=== PATIENT | female | born 1950 | race Caucasian/White ===

== ENCOUNTER 2016-11-01 10:25 | Outpatient (CLI) | payer OTHER ==
[2016-11-01 10:55] LABS: BASOPHILS % 0.7 (0.0-1.5); EOSINOPHILS % 3.5 % (0.0-6.8); LYMPHOCYTES # 1.8 # k/uL (0.6-4.0); MEAN CORPUSCULAR HEMOGLOBIN 30.9 pg (28.0-34.0); MONOCYTES # 0.3 # k/uL (0.0-0.9); MONOCYTES % 3.8 % (0.0-11.0); NEUTROPHILS # 5.4 # k/uL (1.4-7.7)
[2016-11-01 11:07] LABS: eGFR (African) > 60; eGFR (Non-African) > 60
== END 2016-11-01 10:26 ==
LOC: LAB 10:25
PROVIDERS: ATTEND Family Medicine
DX: E03.9 Hypothyroidism, unspecified (principal); R53.83 Other fatigue; R73.9 Hyperglycemia, unspecified
CPT/HCPCS: 36415; 80053; 82306; 83036; 84436; 84443; 84480; 85025

== ENCOUNTER 2017-01-04 13:27 | Outpatient (CLI) | payer OTHER | END 2017-01-04 13:30 | LOC: PULMONARY 13:27 | PROVIDERS: ATTEND Internal Medicine Critical Care Medicine | DX: G47.33 Obstructive sleep apnea (adult) (pediatric) (principal); R09.02 Hypoxemia | CPT/HCPCS: 99214; G0463 ==

== ENCOUNTER 2017-04-18 11:17 | Outpatient (CLI) | payer OTHER ==
--- NOTE | 2017-04-18 14:43 | Diagnostic Imaging Report ---
SANDHYA REAL [facility] [address] [facility].[address] [address] Report Submission Date: Apr 18, 2017 12:04:50 PM CDT Patient Study Name: DEBRA ORLANDO Date: Apr 18, 2017 11:21:33 AM CDT Modality Type: CR Gender: F Description: UPPER EXTREMITY : 46 Institution: [facility] Physician: SANDHYA REAL Examination: Plain film humerus History: Discomfort Comparison exams: None provided Findings: 3 views of the humerus demonstrate normal cortical margins. No fracture. No dislocation. No joint effusion Impression: No acute osseous abnormality. Electronically signed on Apr 18, 2017 12:04:50 PM CDT by: Joe TRIPATHI
== END 2017-04-18 11:25 ==
LOC: RAD 11:17
PROVIDERS: ATTEND Family Medicine
DX: M79.602 Pain in left arm (principal)
CPT/HCPCS: 73060

== ENCOUNTER → 2017-04-19 | Outpatient (CLI) | payer OTHER ==
[2017-04-19 09:03] LABS: eGFR (African) > 60; eGFR (Non-African) > 60
== END ==
LOC: LAB 08:22
PROVIDERS: ATTEND Family Medicine
DX: E11.9 Type 2 diabetes mellitus without complications (principal)
CPT/HCPCS: 36415; 80053; 80061; 83036

== ENCOUNTER 2017-09-17 09:06 | Day surgery (SDC) | payer OTHER ==
[~2017-09-17 09:06] MED LIST: LACTATED RINGERS 1,000 ML IV.SOLN IV ONE; LIDOCAINE HCL/PF 2% 100 MG/5 ML VIAL IJ ONE; PROPOFOL 500 MG/50 ML VIAL IV ONE; SALINE FLUSH 10 ML DISP.SYRIN IVF ONE
--- NOTE | 2017-09-19 13:33 | GI Report ---
REFERRING PHYSICIAN: Dr. Agatha Concepcion GRAPPLER: Mushtaq Harris MD PROCEDURE MEDICATION: Propofol as per anesthesia. INDICATIONS: This is a screening colonoscopy. [place]. PROCEDURE PERFORMED: Colonoscopy. PROCEDURE: An Olympus video colonoscope was advanced to the rectum. There was a little friability in the rectum. She does have a hemorrhoid. A slightly atonic redundant colon and took some maneuvering to reach the base of the cecum. The appendiceal orifice and ileocecal valvae were normal. On slow withdrawal, the cecum, ascending colon, and transverse colon with no obvious intraluminal lesions noted. The descending colon and sigmoid with a lot redundancy but no obvious intraluminal lesions noted. There was a little friability just kind of around the rectum near the anal canal. Patient tolerated the procedure well. FINDINGS: 1. An atonic redundant colon. 2. Hemorrhoids. RECOMMENDATIONS: 1. A high-fiber diet, including Metamucil or Citrucel. 3. Consider re-looking at her colon in 10 years or sooner if clinically indicated. cc: Dr. Agatha TRIPATHI
== END 2017-09-17 12:00 ==
LOC: OPSURG 09:06
PROVIDERS: ATTEND Internal Medicine Gastroenterology
DX: Z12.11 Encounter for screening for malignant neoplasm of colon (principal); K64.9 Unspecified hemorrhoids
CPT/HCPCS: G0121; J2001; J2704; J7120; S1016

== ENCOUNTER 2018-03-15 11:05 | Outpatient (CLI) | payer OTHER | END 2018-03-15 11:10 | LOC: LAB 11:05 | PROVIDERS: ATTEND Family Medicine | DX: E03.9 Hypothyroidism, unspecified (principal); E11.9 Type 2 diabetes mellitus without complications | CPT/HCPCS: 36415; 83036; 84439; 84443; 84481; 84482 ==

== ENCOUNTER 2018-10-01 10:35 | Outpatient (CLI) | payer OTHER ==
--- NOTE | 2018-10-01 15:02 | Diagnostic Imaging Report ---
SANDHYA REAL [facility] [address] [facility].[address] 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 : 46 Institution: [facility] Physician: SANDHYA REAL Right lower extremity venous Doppler History: Right leg pain Duplex and color flow imaging was performed through the right lower extremity femoral popliteal venous system revealing normal compression and normal augmentation throughout. No filling defects are identified. Impression: No evidence for deep venous thrombosis of the right lower extremity. Electronically signed on Oct 01, 2018 11:48:21 AM FEED MILL OPERATOR by: Leslie TRIPATHI
== END 2018-10-01 11:00 ==
LOC: RAD 10:35
PROVIDERS: ATTEND Family Medicine
DX: E03.9 Hypothyroidism, unspecified (principal); M79.604 Pain in right leg
CPT/HCPCS: 36415; 84439; 84443; 84481; 93971

== ENCOUNTER 2019-03-07 08:48 | Outpatient (CLI) | payer OTHER ==
[2019-03-07 12:45] LABS: eGFR (Non-African) > 60
[2019-03-07 12:46] LABS: A1C 5.7 % (<5.7); HDL 28 mg/dL (>40)
--- NOTE | 2019-03-10 18:32 | Diagnostic Imaging Report ---
SANDHYA REAL [facility] [address] [address] Report Submission Date: Mar 10, 2019 5:53:53 PM CDT Patient Study Name: DEBRA ORLANDO Date: Mar 10, 2019 12:00:00 AM CDT Modality Type: DEXA\OT Gender: F Description: DEXA : 46 Institution: [facility] Physician: SANDHYA REAL HISTORY: 68-year-old female with osteoporosis screening. COMPARISON: None available. TECHNIQUE: Dual energy x-ray of absorption examination of the bilateral hips and lumbar spine in AP projection was performed. Bilateral Hips: The mean bone mineral density of the hips is 0.968 g/cm2 calcium hydroxyapatite, correlating with a T-score of -0.3. Lumbar Spine (L1-L4): The mean bone mineral density of the lumbar spine is 1.167 g/cm2 hydroxyapatite, correlating with a T-score of -0.1. IMPRESSION: 1. The patient's bilateral hip T-score is consistent with normal bone mineral density. 2. The patient's lumbar spine T-score is consistent with normal bone mineral density. Electronically signed on Mar 10, 2019 5:53:53 PM CDT by: Tomas TRIPATHI
== END 2019-03-07 08:50 ==
LOC: RAD 08:48
PROVIDERS: ATTEND Family Medicine
DX: R73.9 Hyperglycemia, unspecified (principal); I10 Essential (primary) hypertension; Z78.0 Asymptomatic menopausal state
CPT/HCPCS: 36415; 77080; 80053; 80061; 83036

== ENCOUNTER 2019-04-11 12:04 | Emergency (ER) | payer OTHER ==
--- NOTE | 2019-04-11 12:22 | ED Physician Documentation ---
General Adult - HISTORIAN Historian: patient - HPI Stated Complaint: R rib pain; wasp sting Chief Complaint: General Adult Onset: days ago Timing: still present Severity: moderate Further Comments: yes (Pt is a 68 yo female with 2 complaints. Pt fell 6 days ago and injured her R side and has had R rib pain. It hurts to take a deep breath and pt has had trouble sleeping. Pt's second complaint is that she was stung by a wasp 2 days ago and has had swelling at the sting site at her L wrist. The area is red and swollen. Pt has been applying OTC topical steroids. No difficulty breathing or swallowing after the sting.) - ROS CONST: no problems EYES/ENT: none CVS/RESP: other (chest wall / rib pain R side) GI/: none MS/SKIN/LYMPH: other (wasp sting R wrist) - PAST HX Past History: other (Depression, HTN, Thyroid d/o) Surgeries/Procedures: , other (ortho surgery, tonsillectomy) Allergies/Adverse Reactions: Allergies Allergy/AdvReac Type Severity Reaction Status Date / Time No Known Drug Allergies Allergy Verified 04/11/19 12:30 - SOCIAL HX Smoking History: quit greater than 1 year - FAMILY HX Family History: No - REVIEWED ASSESSMENTS Nursing Assessment Reviewed: Yes Vitals Reviewed: Yes Progress - Progress Progress: X ray R ribs/chest: Probable hairline fracture lateral margin 6th rib. Solu-medrol 80 mg IM in ER for wasp sting Lidoderm patch in ER with good pain relief D/c instructions: Rx Lidoderm 5% patch. Cut to size and apply to affected area over intact skin. May wear for 12 hours/day. Must remove for 12 hours per day. Rx [place] (5/325). Take one or two by mouth every 4 to 6 hours as needed for moderate to severe pain (for lidoderm free period if needed). For Wasp Sting. Prednisone 50 mg. Take one daily for 4 days. Start on 04/12/19. General Adult Physical Exam - PHYSICAL EXAM GENERAL APPEARANCE: mild distress EENT: pharynx normal NECK: normal inspection, supple RESPIRATORY: no resp distress, chest non-tender, breath sounds normal, other (chest wall pain, R side) CVS: reg rate & rhythm, heart sounds normal BACK: normal inspection SKIN: other (erythema, swelling L wrist, 8 cm area after wasp sting) EXTREMITIES: normal range of motion NEURO: oriented X3, motor nml, sensation nml Discharge Clincal Impression: R rib fracture Wasp sting Qualifiers: Encounter type: initial encounter Injury intent: accidental or unintentional Qualified Code(s): T63.461A - Toxic effect of venom of wasps, accidental (unintentional), initial encounter Referrals: Agatha Concepcion MD [Primary Care Provider] - Condition: Stable Disposition: 01 HOME, SELF-CARE Decision to Admit: NO Decision Time: 14:15
[2019-04-11] MEDS ORDERED: methylPREDNISolone SOD SUCC 40 MG/ML VIAL IM ONE (12:30)
[2019-04-11] MEDS ORDERED: LIDOCAINE HCL 5% ADH..PATCH TP ONE (13:23)
--- NOTE | 2019-04-11 13:47 | Diagnostic Imaging Report ---
AMANDA NEELY [facility] [address] [facility] [address] [address] Report Submission Date: Apr 11, 2019 1:15:27 PM CDT Patient Study Name: DEBRA ORLANDO Date: Apr 11, 2019 12:30:47 PM CDT Modality Type: DX Gender: F Description: RIBS UNILATERAL W/ PA CHEST : 46 Institution: [facility] Physician: AMANDA NEELY Examination: Plain film chest/right ribs History: RT SIDED RIB PAIN AFTER FALL 04/05/19 Findings: 4 views of the chest and right ribs demonstrates a lucency involving the lateral margin of the 6th rib. No other fracture or dislocation. Underlying parenchymal without abnormality. No blunting of the costophrenic margins. Impression: Probable hairline fracture lateral margin 6th rib. Electronically signed on Apr 11, 2019 1:15:27 PM CDT by: Joe TRIPATHI
[2019-04-11 14:15] VITALS: BP 145/50
== END 2019-04-11 14:10 | disposition home or self-care (01) ==
LOC: ED 12:04
DX: S22.39XA Fracture of one rib, unspecified side, initial encounter for closed fracture (principal); T63.461A Toxic effect of venom of wasps, accidental (unintentional), initial encounter; W19.XXXA Unspecified fall, initial encounter; Y99.8 Other external cause status
CPT/HCPCS: 71101; 96372; 99282; 99283; J2920; J1030

== ENCOUNTER 2019-05-12 14:51 | Outpatient (CLI) | payer OTHER ==
[2019-05-12 16:11] LABS: TSH 0.06 mIU/l (0.465-4.685)
== END 2019-05-12 14:53 ==
LOC: LAB 14:51
PROVIDERS: ATTEND Internal Medicine
DX: E03.9 Hypothyroidism, unspecified (principal)
CPT/HCPCS: 36415; 84439; 84443; 84481

== ENCOUNTER 2019-08-05 15:00 | Emergency (ER) | payer OTHER ==
[2019-08-05 15:27] VITALS: BP 152/48
--- NOTE | 2019-08-05 15:37 | ED Physician Documentation ---
Female Urogenital Problems - HISTORIAN Historian: patient - HPI Stated Complaint: Possible cyst to vaginal area Chief Complaint: Female Urogenital Problems Additional Information: 69 year old female presents to the ER with c/o vaginal discomfort. She has had it for several days; she states that it is very tender; denies f/c/n/v/d. Not a high risk for STD; denies any urinary symptoms. Onset: days ago Severity: mild Location of Pain: other (vaginal) - Associated Symptoms Urinary Symptoms: none Discharge: denies: vaginal discharge - ROS CONST: none GI/: denies: nausea, vomiting CVS/RESP: none EYES/ENT: none NEURO/PSYCH: none MS/SKIN/LYMPH: none - PAST HX Past History: other (Hypothyroid) Other History: hypertension Allergies/Adverse Reactions: Allergies Allergy/AdvReac Type Severity Reaction Status Date / Time No Known Drug Allergies Allergy Verified 08/05/19 15:28 Home Medications: Ambulatory Orders Medication Instructions Recorded Sulfamethoxazole/Trimethoprim 1 each PO BID #14 tab 08/05/19 [Bactrim Ds] - SOCIAL HX Smoking History: non-smoker Alcohol Use: none Drug Use: none - FAMILY HX Family History: none - VITAL SIGNS Vital Signs: Vital Signs Temp Pulse Resp BP Pulse Ox 97.9 F 68 16 152/48 97 08/05/19 15:03 08/05/19 15:03 08/05/19 15:03 08/05/19 15:03 08/05/19 15:03 - REVIEWED ASSESSMENTS Nursing Assessment Reviewed: Yes Vitals Reviewed: Yes Female Urogenital Problems - EXAM General Appearance: no acute distress, alert EENT: eye inspection normal, ENT inspection normal, pharynx normal, no signs of dehydration, CAMELIA Neck: nml inspection Respiratory: breath sounds nml CVS: heart sounds normal Abdomen: soft, non-tender Pelvic: other (pt has a small reddened, firm area to the left lower labia with a lesion- tender to the touch- not lanceable at this time) Skin: color nml, no rash, warm,dry Extremities: normal range of motion Neuro: oriented X3, CN's nml as tested, motor nml, sensation nml, mood/affect nml, cognition normal Discharge Clincal Impression: Left genital labial abscess Prescriptions: Sulfamethoxazole/Trimethoprim [Bactrim Ds] 1 each PO BID #14 tab Referrals: Agatha Concepcion MD [Primary Care Provider] - 2 Days Additional Instructions: Take Bactrim DS 1 tab by mouth twice a day for 7 days Warm sitz baths 3 times a day Follow up with PCP next week If symptoms worsen return to the ER Comments: Small abscess- red/firm with lesion; Will start on antibiotic; warm sitz baths 3 times a day If unable to get into PCP or 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
== END 2019-08-05 15:37 | disposition home or self-care (01) ==
LOC: ED 15:00
DX: N76.4 Abscess of vulva (principal)